=== PATIENT | male | born 1945 ===

== ENCOUNTER → 2019-06-01 | Day surgery (SDC) | payer OTHER ==
[~2019-06-01] MED LIST: ALLOPURINOL100 MG PO; BRILINTA90 MG PO; LIPITOR80 MG PO; MILLIPRED5 MG PO; MYFORTIC360 MG PO; NORVASC10 MG PO; ZANTAC300 MG PO
== END | disposition home or self-care (01) ==
LOC: ADM 05-28 09:00 → CIR.AMB 07:20
DX: N21.0 Calculus in bladder (principal)